=== PATIENT | female | born 1980 | race Caucasian/White ===

== ENCOUNTER → 2016-11-15 | Outpatient (CLI) | payer OTHER | LOC: HPND 13:21 | PROVIDERS: ATTEND Obstetrics & Gynecology | DX: Z34.02 Encounter for supervision of normal first pregnancy, second trimester (principal) | CPT/HCPCS: 76805 ==

== ENCOUNTER → 2017-01-30 | Outpatient (CLI) | payer OTHER | LOC: CDED 12:53 | PROVIDERS: ATTEND Obstetrics & Gynecology | DX: O24.419 Gestational diabetes mellitus in pregnancy, unspecified control (principal); Z3A.00 Weeks of gestation of pregnancy not specified | CPT/HCPCS: 97802 ==

== ENCOUNTER 2017-04-10 03:08 | Inpatient (IN) | payer OTHER ==
[~2017-04-10] VITALS: Ht 157.5 cm; Wt 87.1 kg
[2017-04-10] MEDS ORDERED: LACTATED RINGER'S 1000 ML INJ 1,000 ML IV PRN (03:53)
--- NOTE | 2017-04-10 03:53 | PD ---
HPI Chief Complaint Contractions with rupture membranes Date Seen: Apr 10, 2017 Time Seen: 03:49 Travel History International Travel<30 Days: No Contact w/Intl Traveler<30Days: No Known Affected Area: No History of Present Illness HPI 36-year-old who is at 39 weeks and 6 days comes in complaining of contractions for a few hours associated with clear rupture membranes that occurred at 9 PM last evening. She is group B strep negative and care has been complicated by diet-controlled gestational diabetes which she states has been under good control. Good movement Weeks Gestation: 40 Para: 0 : 1 History Past Medical History Narrative Medical Well-controlled gestational diabetes Past Surgical History Surgical History: No Previous Surgery Family History Family History: Negative Social History Alcohol Use: No Tobacco Use: No Substance Abuse: No Review of Systems Except as stated in HPI: all other systems reviewed are Neg Physical Exam Narrative GENERAL: Well-nourished, well-developed patient. SKIN: Warm and dry. HEAD: Normocephalic and atraumatic. EYES: No scleral icterus. No injection or drainage. ENT: No nasal drainage noted. Mucous membranes pink. Airway patent. NECK: Supple, trachea midline. No JVD. CARDIOVASCULAR: Regular rate and rhythm without murmurs, gallops, or rubs. RESPIRATORY: Breath sounds equal bilaterally. No accessory muscle use. ABDOMEN/GI: Abdomen soft, non-tender, bowel sounds present, no rebound, no guarding Gravid to [-40] weeks size Fundal Height: [-] GENITOURINARY: External Genitalia: intact and normal in appearance BUS glands: [-Normal] Cervix: [Mid position-] Dilatation: [-4] Effacement: [-90] Station: [--2] Presentation: [Vertex-] Membranes: [ruptured] amnisure is positive however a fore bag is palpable Uterine Contractions: [Every 5 minutes-] FHT's: Category: [1-] Baseline: [-140] Reactive: [-Moderate] Variability: [-Moderate] Decels: [-Absent] EXTREMITIES: No cyanosis or edema. BACK: Nontender without obvious deformity. No CVA tenderness. NEUROLOGICAL: Awake and alert. Motor and sensory grossly within normal limits. Five out of 5 muscle strength in all muscle groups. Normal speech. Data Data Vital Signs Reviewed: Yes Orders Orders Ob (2e) Additional Admit Info (9/19/17 03:36) Group B Strep: Negative MDM Medical Record Reviewed: Yes Plan 36-year-old who is at 40 weeks gestation today with spontaneous rupture membranes and active labor with cervix of 4 cm. Patient is group B strep negative and has well-controlled gestational diabetes through diet. Patient is undecided on the necessity of an epidural Diagnosis Diagnosis: Primary Impression: 40 weeks gestation of Additional Impressions: Irregular uterine contractions Rupture of membranes with clear amniotic fluid Ivon Murray MD Apr 10, 2017 03:53
[2017-04-10] MEDS ORDERED: SODIUM CHLORID 0.9% 500 ML INJ 500 ML IV PRN (04:00)
[2017-04-10] MEDS ORDERED: LIDOCAINE HCL 1% 50 ML VIAL INFIL PRN (04:00)
[2017-04-10] MEDS ORDERED: CITRIC ACID-SODIUM CITRATE LIQ 30 ML UDC PO SCH (04:00)
[2017-04-10] MEDS ORDERED: LIDOCAINE HCL 1% 50 ML VIAL I-DERMAL PRN (04:00)
[2017-04-10] MEDS ORDERED: MINERAL OIL 10 ML VIAL TOPICAL PRN (04:00)
[2017-04-10] MEDS ORDERED: ONDANSETRON HCL 4 MG/2 ML VIAL IV PRN (04:00)
[2017-04-10] MEDS ORDERED: OXYTOCIN 30 UNITS-500ML PREMIX 500 ML IV ONE ×2 (04:00→17:00)
[2017-04-10] MEDS ORDERED: SODIUM CHLOR 0.9% 1000 ML INJ 1,000 ML IV PRN (04:13)
[2017-04-10] MEDS ORDERED: PREN29TA PO (04:14)
[2017-04-10 04:21] LABS: AUTOMATED NEUTROPHIL # 12.1 TH/MM3 (1.8-7.7); BASOPHIL % 0.2 % (0.0-2.0); EOSINOPHIL % 0.1 % (0.0-4.0); HEMATOCRIT 38.4 % (35.0-46.0); HEMO FLAGS DIFF FINAL; LYMPH % 10.5 % (9.0-44.0); LYMPHOCYTE # 1.5 TH/MM3 (1.0-4.8); MEAN CELL VOLUME 89.3 FL (80.0-100.0); MEAN CORPUSCULAR HEMOGLOBIN 30.1 PG (27.0-34.0); MEAN CORPUSCULAR HGB CONC 33.6 % (32.0-36.0); MONO % 4.3 % (0.0-8.0); NEUT % 84.9 % (16.0-70.0); PLATELET COUNT 180 TH/MM3 (150-450); RED CELL DISTRIBUTION WIDTH 13.8 % (11.6-17.2); WHITE BLOOD COUNT 14.2 TH/MM3 (4.0-11.0)
[2017-04-10] MEDS: LACTATED RINGER'S 1000 ML INJ 1,000 ML IV SCH ×2 (04:33→11:53)
[2017-04-10 04:53] LABS: BLOOD, URINE NEG (NEG); COMMENT (UR) CULT NOT INDICATED; CULTURE IF INDICATED CULT NOT INDICATED; GLUCOSE,URINE NEG (NEG); KETONE, URINE NEG (NEG); MUCUS URINE FEW /lpf (OCC); NITRITE,URINE NEG (NEG); PH, URINE 6.5 (5.0-8.5); SQUAMOUS EPITHELIAL CELL URINE 1 /hpf (0-5); URINE COLOR YELLOW (YELLW/STRAW)
[2017-04-10] MEDS ORDERED: fentaNYL 2MCG-BUPIV 0.125% INJ 100 ML ONE (08:33)
[2017-04-10] MEDS ORDERED: ePHEDrine/NS 25 MG/5 ML SYR ONE (09:20)
[2017-04-10] MEDS ORDERED: ePHEDrine/NS 25 MG/5 ML SYR IV PRN (10:30)
[2017-04-10] MEDS ORDERED: OXYTOCIN 30 UNITS/NS 500ML PREMIX IV SCH (11:00)
[2017-04-10] MEDS ORDERED: NO SYSTEM NARCOTICS PRN (11:00)
[2017-04-10] MEDS ORDERED: DO NOT ADMINISTER ANTICOAGULANTS PRN (11:00)
[2017-04-10] MEDS ORDERED: fentaNYL 2MCG-BUPIV 0.125% 100 ML EPIDURAL SCH (11:00)
[2017-04-10 11:16] VITALS: RESP 18
--- NOTE | 2017-04-10 11:50 | PD.LABORPN ---
Subjective Subjective Pt comfortable after epidural Objective Vital Signs Vital Signs Date Time Temp Pulse Resp B/P (MAP) Pulse Ox O2 Delivery O2 Flow Rate FiO2 04/10/17 11:16 18 Objective Pelvic Exam: Cervix: 90/0 Dilatation: [-] Effacement: [-] Station: [-] Presentation: [-] Membranes: AROM of forebag...clear fluid Uterine Contraction: IUPC placed...ctxs q 1-4 min FHT's: Category: 140's reactive no decels Baseline: [-] Reactive: [-] Variability: [-] Decels: [-] Weeks Gestation: 40 Gest Age Assessed Date: Apr 10, 2017 Gest Age Assessed Time: 09:00 Pt started active labor?: Yes Active labor start date: Apr 10, 2017 Active labor start time: 03:00 Medical induction of labor?: No Artificial rupture of membrane: Yes Artificial ROM date: Apr 10, 2017 Artifical ROM time: 11:45 Assessment/Plan Assessment and Plan IUP at 40 wks with diet controlled GDM in labor with protracted labor right now 1. AROM 2. IUPC 3. Lore Iglesias MD Apr 10, 2017 11:50
--- NOTE | 2017-04-10 16:55 | PD.LABORPN ---
Subjective Subjective Pt with some ctx pain Objective Vital Signs Vital Signs Date Time Temp Pulse Resp B/P (MAP) Pulse Ox O2 Delivery O2 Flow Rate FiO2 04/10/17 11:16 18 Objective Pelvic Exam: Cervix: 7-8/edematous anterior lip/caput at +1 Dilatation: [-] Effacement: [-] Station: [-] Presentation: [-] Membranes: [intact or ruptured] Uterine Contractions:IUPC with ctxs q2-4 min at 50 mmhg FHT's: Category: 150's reactive with occ episodes of bradycardia responding to position change, dc pitocin Baseline: [-] Reactive: [-] Variability: [-] Decels: [-] Weeks Gestation: 40 Gest Age Assessed Date: Apr 10, 2017 Gest Age Assessed Time: 09:00 Pt started active labor?: Yes Active labor start date: Apr 10, 2017 Active labor start time: 03:00 Medical induction of labor?: No Artificial rupture of membrane: Yes Artificial ROM date: Apr 10, 2017 Artifical ROM time: 11:45 Assessment/Plan Assessment and Plan IUP at 40 wks with arrest of labor 1. Discussed delivery by c/s, all questions answered..will proceed with c/ s..all services notified Lore Cardona MD Apr 10, 2017 16:55
[2017-04-10] MEDS ORDERED: KETOROLAC TROMETHAMINE 60 MG/2 ML (IM) VIAL IM PRN (17:00)
[2017-04-10] MEDS ORDERED: ONDANSETRON HCL 4 MG/2 ML VIAL IV PUSH PRN (17:00)
[2017-04-10] MEDS ORDERED: SIMETHICONE 80 MG CHEWABLE TAB PO PRN (17:00)
[2017-04-10] MEDS ORDERED: ceFAZolin 2 GM PREMIX 50 ML IV SCH (17:00)
[2017-04-10] MEDS ORDERED: SODIUM CHLORIDE 0.9% FLUSH 10 ML FLUSH IV FLUSH PRN (17:00)
[2017-04-10] MEDS ORDERED: oxyCODONE/ACETAMINOPHEN 5 MG/325 MG TAB PO PRN (17:00)
[2017-04-10] MEDS ORDERED: OXYTOCIN 10 UNIT/ML AMP ONE (17:15)
[2017-04-10] MEDS ORDERED: MORPHINE SULFATE PF 5 MG/10 ML VIAL ONE (18:11)
[2017-04-10] MEDS ORDERED: ONDANSETRON HCL 4 MG/2 ML VIAL ONE (18:11)
[2017-04-10] MEDS ORDERED: OXYTOCIN 30 UNITS-500ML PREMIX 500 ML ONE (19:30)
[2017-04-10] MEDS ORDERED: EPIDURAL-NALOXONE HCL 0.4 MG/ML AMP IV PUSH PRN (20:00)
[2017-04-10] MEDS ORDERED: EPIDURAL-DO NOT ADMINISTER ANTICOAGULANTS PRN (20:00)
[2017-04-10] MEDS ORDERED: EPIDURAL-DIPHENHYDRAMINE HCL 50 MG/ML VIAL IV PUSH PRN (20:00)
[2017-04-10] MEDS ORDERED: EPIDURAL-NO SYSTEMIC NARCOTICS PRN (20:00)
[2017-04-10] MEDS ORDERED: EPIDURAL-DIPHENHYDRAMINE HCL 50 MG CAP PO PRN (20:00)
[2017-04-10] MEDS ORDERED: SODIUM CHLORIDE 0.9% FLUSH 10 ML FLUSH IV FLUSH SCH (21:00)
[2017-04-10] MEDS ORDERED: LACTATED RINGER'S 1000 ML INJ 1,000 ML IV SCH (22:00)
[2017-04-10] MEDS ORDERED: PROMETHAZINE INJ 25 MG/ML VIAL IM PRN (22:15)
[2017-04-11] MEDS ORDERED: OXYTOCIN 30 UNITS-500ML PREMIX 500 ML IV PRN (03:00)
[2017-04-11] MEDS: oxyCODONE/ACETAMINOPHEN 5 MG/325 MG TAB PO PRN ×2 (04:11→21:20)
[2017-04-11 06:04] LABS: AUTOMATED NEUTROPHIL # 17.2 TH/MM3 (1.8-7.7); BASOPHIL % 0.1 % (0.0-2.0); HEMATOCRIT 32.7 % (35.0-46.0); HEMO FLAGS DIFF FINAL; LYMPHOCYTE # 0.9 TH/MM3 (1.0-4.8); MEAN CELL VOLUME 89.8 FL (80.0-100.0); MEAN CORPUSCULAR HEMOGLOBIN 30.4 PG (27.0-34.0); MEAN CORPUSCULAR HGB CONC 33.9 % (32.0-36.0); MONO % 4.6 % (0.0-8.0); NEUT % 90.3 % (16.0-70.0); PLATELET COUNT 142 TH/MM3 (150-450); RED BLOOD COUNT 3.64 MIL/MM3 (4.00-5.30); RED CELL DISTRIBUTION WIDTH 14.2 % (11.6-17.2)
--- NOTE | 2017-04-11 08:02 | HHI.OB ---
Subjective Post Operative Day: 1 Remarks Pt doing well, no more n/v, ambulating well, reasonable pain control Objective Vitals/I&O Vital Signs Date Time Temp Pulse Resp B/P (MAP) Pulse Ox O2 Delivery O2 Flow Rate FiO2 04/10/17 11:16 18 Result Diagram: 04/11/17 0532 Objective Remarks GENERAL: Well-nourished, well-developed patient. CARDIOVASCULAR: Regular rate and rhythm without murmurs, gallops, or rubs. RESPIRATORY: Breath sounds equal bilaterally. No accessory muscle use. ABDOMEN/GI: Abdomen soft, non-tender, bowel sounds present. Incision: Clean, dry and intact. Fundus: Firm, non-tender at umbilicus. GENITOURINARY: Light to moderate bleeding. EXTREMITIES: No cyanosis or edema, non-tender, without signs of DVT. Medications and IVs Current Medications Medications (Trade) Dose Ordered Sig/Tom Route Start Time Stop Time Status Last Admin Lactated Ringer's 1,000 ml @ 125 mls/hr Q8H IV 04/10/17 03:53 04/10/17 11:53 Lactated Ringer's 1,000 ml @ 3,000 mls/hr Q20M PRN IV 04/10/17 03:53 Sodium Chloride 500 ml @ 1,000 mls/hr ONCE PRN IV 04/10/17 04:00 Sodium Chloride 1,000 ml @ 100 mls/hr Q10H PRN IV 04/10/17 04:13 (Xylocaine 1% Inj (50 ml)) 0.1 ml UNSCH X1 PRN I-DERMAL 04/10/17 04:00 04/13/17 03:59 (Bicitra Liq) 30 ml MATERIAL YARD CLERK PO 04/10/17 04:00 04/14/17 03:59 (Zofran Inj) 4 mg Q6H PRN IV 04/10/17 04:00 04/10/17 11:44 (fentaNYL INJ) 50 mcg Q1H PRN IV PUSH 04/10/17 04:00 (fentaNYL INJ) 100 mcg Q1H PRN IV PUSH 04/10/17 04:00 04/10/17 08:31 (Xylocaine 1% Inj (50 ml)) 10 ml UNSCH X1 PRN INFIL 04/10/17 04:00 04/12/17 03:59 (Muri-Lube Oil) 10 ml UNSCH PRN TOPICAL 04/10/17 04:00 Miscellaneous Information No systemic narcotics to be given except... UNSCH PRN .XX 04/10/17 11:00 04/11/17 10:59 Miscellaneous Information DO NOT ADMINISTER ANY ANTICOAGUL... UNSCH PRN .XX 04/10/17 11:00 04/11/17 10:59 Fentanyl/ Bupivacaine HCl 100 ml @ 0 mls/hr TITRATE EPIDURAL 04/10/17 11:00 04/10/17 11:16 (ePHEDrine/NS 25 MG/5 ML SYR) 10 mg UNSCH PRN IV 04/10/17 10:30 04/11/17 10:29 Oxytocin 500 ml @ 2 mls/hr TITRATE IV 04/10/17 11:00 04/10/17 11:50 Cefazolin Sodium/ Dextrose 50 ml @ 100 mls/hr MATERIAL YARD CLERK IV 04/10/17 17:00 04/13/17 16:59 04/10/17 18:52 Lactated Ringer's 1,000 ml @ 100 mls/hr Q10H IV 04/10/17 22:00 04/11/17 17:59 04/11/17 02:16 Oxytocin 500 ml @ 100 mls/hr UNSCH X1 PRN IV 04/11/17 03:00 04/12/17 02:59 (NS Flush) 2 ml BID IV FLUSH 04/10/17 21:00 (NS Flush) 2 ml UNSCH PRN IV FLUSH 04/10/17 17:00 (Mylicon Chew) 80 mg QID PRN PO 04/10/17 17:00 (Toradol Inj) 60 mg UNSCH X1 PRN IM 04/10/17 17:00 04/11/17 16:59 (Toradol Inj) 30 mg Q6H PRN IM 04/10/17 17:00 04/11/17 16:59 (Percocet 5-325 Mg) 1 tab Q4H PRN PO 04/10/17 17:00 (Percocet 5-325 Mg) 2 tab Q4H PRN PO 04/10/17 17:00 04/11/17 04:11 Cefazolin Sodium 1000 mg/Sodium Chloride 100 ml @ 200 mls/hr Q8H IV 04/11/17 02:00 04/11/17 10:29 04/11/17 02:16 (Hanane-Colace) 2 tab Q12H PRN PO 04/10/17 17:00 (M-M-R Ii Inj) 0.5 ml ONCE ONCE SQ 04/11/17 16:00 04/11/17 16:01 (Boostrix Inj) 0.5 ml ONCE ONCE IM 04/11/17 16:00 04/11/17 16:01 (Zofran Inj) 4 mg Q6H PRN IV PUSH 04/10/17 17:00 Miscellaneous Information NO SYSTEMIC NARCOTICS TO BE GIVEN FO... UNSCH PRN .XX 04/10/17 20:00 04/11/17 19:59 (Narcan Inj) 0.4 mg UNSCH PRN IV PUSH 04/10/17 20:00 04/11/17 19:59 (Benadryl Inj) 25 mg Q6H PRN IV PUSH 04/10/17 20:00 04/11/17 19:59 (Benadryl) 50 mg Q6H PRN PO 04/10/17 20:00 04/11/17 19:59 Miscellaneous Information ALL NURSING DEPARTMENTS UNSCH PRN .XX 04/10/17 20:00 04/11/17 19:59 (Phenergan Inj) 25 mg Q6H PRN IM 04/10/17 22:15 04/10/17 22:16 Assessment/Plan Assessment and Plan POD # 1 s/p primary c/s for arrest of labor doing well 1. routine post op care Discharge Planning plan for dc next 1-2 Lore Boswell MD Apr 11, 2017 08:02
[2017-04-11] MEDS: KETOROLAC TROMETHAMINE 60 MG/2 ML (IM) VIAL IM PRN ×2 (09:55→16:16)
[2017-04-11] MEDS ORDERED: MEASLES, MUMPS, RUBELLA VACCINE 0.5 ML VIAL SQ ONE (16:00)
[2017-04-11] MEDS ORDERED: DIPHTH/TETANUS/ACEL PERTUSSIS (BOOSTER) 0.5 ML VIAL/PFS IM ONE (16:00)
[2017-04-12] MEDS: oxyCODONE/ACETAMINOPHEN 5 MG/325 MG TAB PO PRN ×5 (02:15→22:28)
[2017-04-12] MEDS: DOCUSATE SODIUM 50 MG/SENNA 8.6 MG TAB PO PRN ×2 (07:48→22:28)
--- NOTE | 2017-04-12 12:19 | HHI.OB ---
Subjective Post Operative Day: 2 Remarks Pt doing well , good pain control, no n/v, ambulating well Objective Result Diagram: 04/11/17 0532 Objective Remarks GENERAL: Well-nourished, well-developed patient. CARDIOVASCULAR: Regular rate and rhythm without murmurs, gallops, or rubs. RESPIRATORY: Breath sounds equal bilaterally. No accessory muscle use. ABDOMEN/GI: Abdomen soft, non-tender, bowel sounds present. Incision: Clean, dry and intact. Fundus: Firm, non-tender at umbilicus. GENITOURINARY: Light to moderate bleeding. EXTREMITIES: No cyanosis or edema, non-tender, without signs of DVT. Medications and IVs Current Medications Medications (Trade) Dose Ordered Sig/Tom Route Start Time Stop Time Status Last Admin Lactated Ringer's 1,000 ml @ 125 mls/hr Q8H IV 04/10/17 03:53 04/10/17 11:53 Lactated Ringer's 1,000 ml @ 3,000 mls/hr Q20M PRN IV 04/10/17 03:53 Sodium Chloride 500 ml @ 1,000 mls/hr ONCE PRN IV 04/10/17 04:00 Sodium Chloride 1,000 ml @ 100 mls/hr Q10H PRN IV 04/10/17 04:13 (Xylocaine 1% Inj (50 ml)) 0.1 ml UNSCH X1 PRN I-DERMAL 04/10/17 04:00 04/13/17 03:59 (Bicitra Liq) 30 ml RABBLE FURNACE TENDER PO 04/10/17 04:00 04/14/17 03:59 (Zofran Inj) 4 mg Q6H PRN IV 04/10/17 04:00 04/10/17 11:44 (fentaNYL INJ) 50 mcg Q1H PRN IV PUSH 04/10/17 04:00 (fentaNYL INJ) 100 mcg Q1H PRN IV PUSH 04/10/17 04:00 04/10/17 08:31 (Muri-Lube Oil) 10 ml UNSCH PRN TOPICAL 04/10/17 04:00 Fentanyl/ Bupivacaine HCl 100 ml @ 0 mls/hr TITRATE EPIDURAL 04/10/17 11:00 04/10/17 11:16 Oxytocin 500 ml @ 2 mls/hr TITRATE IV 04/10/17 11:00 04/10/17 11:50 Cefazolin Sodium/ Dextrose 50 ml @ 100 mls/hr RABBLE FURNACE TENDER IV 04/10/17 17:00 04/13/17 16:59 04/10/17 18:52 (NS Flush) 2 ml BID IV FLUSH 04/10/17 21:00 (NS Flush) 2 ml UNSCH PRN IV FLUSH 04/10/17 17:00 (Mylicon Chew) 80 mg QID PRN PO 04/10/17 17:00 (Percocet 5-325 Mg) 1 tab Q4H PRN PO 04/10/17 17:00 (Percocet 5-325 Mg) 2 tab Q4H PRN PO 04/10/17 17:00 04/12/17 07:48 (Hanane-Colace) 2 tab Q12H PRN PO 04/10/17 17:00 04/12/17 07:48 (Zofran Inj) 4 mg Q6H PRN IV PUSH 04/10/17 17:00 (Phenergan Inj) 25 mg Q6H PRN IM 04/10/17 22:15 04/10/17 22:16 Assessment/Plan Assessment and Plan POD # 2 s/p primary c/s for arrest of labor doing well 1. routine post op care Discharge Planning plan for dc next 1 Lore Boswell MD Apr 12, 2017 12:19
[2017-04-12] MEDS ORDERED: KETOROLAC TROMETHAMINE 30 MG/ML (IVP) VIAL IM PRN (14:30)
[2017-04-13] MEDS: oxyCODONE/ACETAMINOPHEN 5 MG/325 MG TAB PO PRN (03:22)
--- NOTE | 2017-04-13 06:09 | MP ---
cc: ТАТЬЯНА LEE M.D. DATE OF SURGERY 04/10/2017 PREOPERATIVE DIAGNOSIS Intrauterine at out 40+ weeks gestation with arrest of active phase of labor. POSTOPERATIVE DIAGNOSIS Intrauterine at out 40+ weeks gestation with arrest of active phase of labor with occiput posterior position noted. PROCEDURE PERFORMED Primary low transverse section. OPERATING SURGEON Татьяна Lee MD ANESTHESIA Epidural. FINDINGS IN SURGERY A viable male infant weighing 8 pounds 0 ounces without Apgars 4 and 9. Normal-appearing tubes and ovaries. Occiput posterior position was noted and a very prominent sacrum noted as well. BLOOD LOSS 800 cc. COMPLICATIONS None. PROCEDURE IN DETAIL After proper consents were obtained, blood type had been typed and screened, the patient was taken to the operating room where an adequate level of epidural anesthesia was achieved. She was then placed in the dorsal position, sterilely prepped and draped. The Ferris catheter had already been placed. At this time using a sharp knife a Pfannenstiel skin incision was performed. This was carried down to the fascia using the Bovie cautery. The fascia was nicked in the midline and extended superior laterally on each side with then blunt dissection of the muscles off of the fascia. The peritoneum was identified, grasped with two hemostats, entered sharply with Metzenbaum scissors. This was extended superiorly inferiorly paying close attention to the bladder. A bladder blade was placed, bladder flap was developed. A transverse incision was made in the lower uterine segment. This was extended using finger fracture technique. We had controlled delivery of the vertex which was in an occiput posterior position noted, bulb suction to the oropharynx and nares. Controlled delivery of the body followed. The cord was clamped x2, cutting in between and then the was handed to the team in attendance. was a viable male weighing 8 pounds 0 ounces without Apgars 4 and 9. At this time cord blood sample was obtained. Placenta was removed. The uterus was exteriorized, wiped clean of clots and debris. The uterine incision was closed with a #1 chromic suture starting at each apex, meeting in the midline in a running fashion. Irrigation was performed of the abdominopelvic cavity. The uterus was placed back into the cavity. Hemostasis was assured. We reapproximated the muscles using #1 chromic suture x1 and then we went ahead and closed the fascia using 0 Vicryl starting at each apex and meeting in the midline in a running fashion. Irrigation was performed of the subcu, hemostasis achieved with Bovie cautery. We closed the space using 3-0 Vicryl in an interrupted fashion. We then closed the skin using mike. All sponge, lap and needle count were correct x3 and the patient was stable to the recovery room. MD KALEE Phillips/SSB /9:33 PM /5:53 AM
[2017-04-13] MEDS: LACTATED RINGER'S 1000 ML INJ 1,000 ML IV SCH (08:58)
[2017-04-13] MEDS ORDERED: OXYC1TAB63 PO (12:19)
--- NOTE | 2017-04-13 12:20 | HHI.DCPOC ---
Discharge Care Plan Diagnosis: (1) Liveborn by (2) Arrested active labor, delivered, current hospitalization Report Symptoms to Your Doctor -Temperature above 100.5 degrees -Redness, of incision or excessive or foul smelling drainage -Unusual pain or calf pain -Increased vaginal bleeding -Painful or difficulty urinating -Feelings of extreme sadness or anxiety after 2 weeks Goals to Promote Your Health * To prevent worsening of your condition and complications * To maintain your health at the optimal level Directions to Meet Your Goals Take your medications as prescribed Follow your dietary instruction Follow activity as directed Ensure plenty of rest for recovery Drink fluids for hydration Keep your appointments as scheduled Take your immunizations and boosters as scheduled If your symptoms worsen call your PCP, if no PCP go to Urgent Care Center or Emergency Room Smoking is Dangerous to Your Health. Avoid second hand smoke Call the 24-hour crisis hotline for domestic abuse at Lore Cardona MD Apr 13, 2017 12:20
--- NOTE | 2017-04-13 12:22 | HHI.DS ---
Admission Date Apr 10, 2017 at 03:36 Discharge Date: Apr 13, 2017 Admitting Diagnosis labor at term Diagnosis: Delivery Date: Apr 10, 2017 : Primary Infant: Male, Single Brief History 36-year-old who is at 39 weeks and 6 days comes in complaining of contractions for a few hours associated with clear rupture membranes that occurred at 9 PM last evening. She is group B strep negative and care has been complicated by diet-controlled gestational diabetes which she states has been under good control. Good movement Pt Condition on Discharge: Good Discharge Disposition: Discharge Home Discharge Instructions Diet Instructions: As Tolerated, No Restrictions Activities You Can Perform: Pelvic Rest Lore Cardona MD Apr 13, 2017 12:22
== END 2017-04-13 13:53 | disposition home or self-care (01) | DRG 766 ==
LOC: HOBED 03:08 → H2EA 03:36 → H1EA 19:32
PROVIDERS: ADMIT Obstetrics & Gynecology; ATTEND Obstetrics & Gynecology
PROC: 10D00Z1 Extraction of Products of Conception, Low, Open Approach (ICD-10-PCS; principal; 2017-04-10)
PROC: 10907ZC Drainage of Amniotic Fluid, Therapeutic from Products of Conception, Via Natural or Artificial Opening (ICD-10-PCS; 2017-04-10)
PROC: 10H07YZ Insertion of Other Device into Products of Conception, Via Natural or Artificial Opening (ICD-10-PCS; 2017-04-10)
PROC: 3E0S3CZ (ICD-10-PCS; 2017-04-10)
PROC: 00HU33Z Insertion of Infusion Device into Spinal Canal, Percutaneous Approach (ICD-10-PCS; 2017-04-10)
DX: O24.420 Gestational diabetes mellitus in childbirth, diet controlled (principal); O62.1 Secondary uterine inertia; Z37.0 Single live birth; Z3A.40 40 weeks gestation of pregnancy
CPT/HCPCS: 59025; 81001; 84112; 85025; 86592; 86900; 86901; 90715; J0690; J1885; J2274; J2405; J2550; J2590; J3010; J7120